=== PATIENT | female | born 1980 | race Caucasian/White ===

== ENCOUNTER 2018-11-14 02:54 | Emergency (ER) | payer SELFPAY ==
[~2018-11-14] VITALS: Ht 147.3 cm; Wt 52.2 kg
[2018-11-14] MEDS: HYDROCODONE/APAP 5-325MG TABLET PO ONE (03:39)
[2018-11-14] MEDS: SULFAMETH/TRIMETH 800/160 MG TABLET PO ONE (03:39)
[2018-11-14] MEDS ORDERED: HYDROCODONE/APAP 5-325MG TABLET ONE (03:40)
[2018-11-14] MEDS ORDERED: SULFAMETH/TRIMETH 800/160 MG TABLET ONE (03:40)
--- NOTE | 2018-11-14 04:00 | NUR ---
Wound Tx on bilateral foot by cleansing with NS and betadine with dressing
[2018-11-14] MEDS ORDERED: QUETIAPINE FUMARATE 100 MG TABLET ONE (04:02)
[2018-11-14] MEDS: QUETIAPINE FUMARATE 25 MG TABLET PO ONE (04:10)
--- NOTE | 2018-11-14 04:20 | NUR ---
Patient requesting eval for psych satting "I've been walking for 4 days and my feet hurt. I need to be admitted to a sch facility." Denies visual and auditory hallucination. Denies SI
--- NOTE | 2018-11-14 04:30 | NUR ---
Patient refused to have blood work and give urine. States "I just want my discharge paper work."
--- NOTE | 2018-11-14 04:39 | NUR ---
Patient given written and verbal discharge instructions. Patient verbalizes understanding of instructions. Patient is ambulatory with steady gait. Refuses offer of long-term placement. Patient given list of available shelters in surrounding area.
[2018-11-14 04:41] VITALS: BP 128/88
== END 2018-11-14 04:43 | disposition home or self-care (01) ==
LOC: ER 02:56
DX: S90.822A Blister (nonthermal), left foot, initial encounter (principal); S90.821A Blister (nonthermal), right foot, initial encounter; R05 Cough; J33.9 Nasal polyp, unspecified; F17.290 Nicotine dependence, other tobacco product, uncomplicated; Z59.0 Homelessness; Z88.5 Allergy status to narcotic agent; X58.XXXA Exposure to other specified factors, initial encounter; Y93.89 Activity, other specified; Y92.89 Other specified places as the place of occurrence of the external cause; Y99.8 Other external cause status; Z71.6 Tobacco abuse counseling
CPT/HCPCS: 71045; A4217; A4663